=== PATIENT | female | born 1940 | race Caucasian/White ===

== ENCOUNTER 2018-07-05 08:52 | Outpatient (CLI) | payer OTHER ==
[~2018-07-05 08:52] MED LIST: LIMBREL 500 MG500 MG PO; SYNTHROID50 MCG
== END 2018-07-05 08:58 | disposition home or self-care (01) ==
LOC: SONOGRAMA 08:52
DX: R16.0 Hepatomegaly, not elsewhere classified (principal)

== ENCOUNTER 2018-09-17 15:45 | Outpatient (CLI) | payer OTHER | END 2018-09-17 15:49 | disposition home or self-care (01) | LOC: LAB 15:45 | DX: R10.32 Left lower quadrant pain (principal); Z51.81 Encounter for therapeutic drug level monitoring ==

== ENCOUNTER 2018-09-25 09:26 | Outpatient (CLI) | payer OTHER | END 2018-09-25 09:45 | disposition home or self-care (01) | LOC: TOM 09:26 | DX: R63.4 Abnormal weight loss (principal); R10.32 Left lower quadrant pain | CPT/HCPCS: 74178; Q9965 ==

== ENCOUNTER 2025-01-29 14:09 | Outpatient (CLI) | payer OTHER | END 2025-01-29 14:21 | disposition home or self-care (01) | LOC: TOM 14:09 | PROVIDERS: ATTEND Internal Medicine | DX: G31.9 Degenerative disease of nervous system, unspecified (principal); T45.525A Adverse effect of antithrombotic drugs, initial encounter ==